=== PATIENT | male | born 1945 | race Caucasian/White ===

== ENCOUNTER 2017-05-12 13:10 | Outpatient (CLI) | payer OTHER ==
[~2017-05-12 13:10] MED LIST: CRESTOR5 MG; HYDROCHLOROTHIA25 MG; LOVAZA1 G; [UNRECOGNIZED DRUG - OTHER]
== END 2017-05-12 13:17 | disposition home or self-care (01) ==
LOC: LAB 13:10
DX: R97.20 Elevated prostate specific antigen [PSA] (principal)

== ENCOUNTER 2017-05-19 07:42 | Outpatient (CLI) | payer OTHER | END 2017-05-19 09:10 | disposition home or self-care (01) | LOC: SONOGRAMA 07:42 | DX: R97.20 Elevated prostate specific antigen [PSA] (principal) ==

== ENCOUNTER 2018-11-30 13:33 | Outpatient (CLI) | payer OTHER | END 2018-11-30 13:35 | disposition home or self-care (01) | LOC: RAD 13:33 | DX: M19.041 Primary osteoarthritis, right hand (principal) ==

== ENCOUNTER 2024-09-07 09:16 | Outpatient (CLI) | payer OTHER | END 2024-09-07 09:17 | disposition home or self-care (01) | LOC: NUCLEAR 09:16 | DX: I50.32 Chronic diastolic (congestive) heart failure (principal); I25.118 Atherosclerotic heart disease of native coronary artery with other forms of angina pectoris ==